=== PATIENT | female | born 1965 ===

== ENCOUNTER → 2021-12-07 10:58 | Outpatient (BNVA) | payer OTHER, SELFPAY | PROVIDERS: PCP Clinical Nurse Specialist Adult Health; Visit Provider Clinical Nurse Specialist Adult Health | DX: L90.0 Lichen sclerosus et atrophicus (principal); M25.561 Pain in right knee; E03.9 Hypothyroidism, unspecified; I10 Essential (primary) hypertension; F41.9 Anxiety disorder, unspecified; K21.9 Gastro-esophageal reflux disease without esophagitis | CPT/HCPCS: 80053; 80061; 84443; 85025 ==